=== PATIENT | male | born 1945 | race Two or more races ===

== ENCOUNTER 2022-12-22 02:35 | Emergency (ER) | payer MEDICARE ==
[~2022-12-22] VITALS: Ht 182.9 cm; Wt 99.8 kg
[2022-12-22] MEDS ORDERED: ONDANSETRON HCL/PF 4 MG/2 ML VIAL ONE (02:50)
[2022-12-22] MEDS ORDERED: LIDOCAINE VISCOUS 2% UD 15 ML UDC ONE (02:50)
[2022-12-22] MEDS ORDERED: MAG HYDROX/AL HYDROX/SIMETH 30 ML UDC ONE (02:50)
[2022-12-22] MEDS ORDERED: MAG HYDROX/AL HYDROX/SIMETH 30 ML UDC PO ONE (03:00)
[2022-12-22] MEDS ORDERED: LIDOCAINE VISCOUS 2% UD 15 ML UDC MM ONE (03:00)
[2022-12-22] MEDS ORDERED: ONDANSETRON HCL/PF 4 MG/2 ML VIAL IV ONE (03:00)
[2022-12-22 03:12] LABS: HEMOGLOBIN 14.9 g/dL (13.5-17.5); MEAN CORPUSCULAR HEMOGLOBIN 31 PG (26.0-33.0)
[2022-12-22 03:18] LABS: BASOPHILS % (AUTO) 0.4 % (0.0-2.0); EOSINOPHILS # (AUTO) 0.3 K/uL (0.0-0.7); EOSINOPHILS % (AUTO) 6.6 % (0.0-6.0); HEMATOCRIT 44 % (39-51); LYMPHOCYTES # (AUTO) 0.9 K/uL (0.8-4.8); MEAN CORPUSCULAR HGB CONC 34 g/dl (31.0-36.0); MEAN CORPUSCULAR VOLUME 92 fL (80-96); MONOCYTES # (AUTO) 0.3 K/uL (0.1-1.30); MONOCYTES % (AUTO) 6.8 % (2.0-12.0); NEUTROPHILS # (AUTO) 3.3 K/uL (1.8-8.9); NEUTROPHILS % (AUTO) 67.2 % (43.0-81.0); PLATELET COUNT (AUTO) 167 K/uL (150-450); RED BLOOD CELL COUNT(AUTO) 4.75 MIL/uL (4.5-6.0); RED CELL DISTRIBUTION WIDTH 12.7 % (11.5-15.0)
[2022-12-22 03:47] LABS: ALANINE AMINOTRANSFERASE 27 U/L (12-78); ALBUMIN 3.7 g/dL (3.4-5.0); ALKALINE PHOSPHATASE 58 U/L (46-116); ASPARTATE AMINOTRANSFERASE 15 U/L (15-37); BILIRUBIN,DIRECT 0.3 mg/dL (0.0-0.2); BILIRUBIN,TOTAL 1.4 mg/dL (0.2-1.0); CALCIUM, SERUM 9.7 mg/dL (8.5-10.1); CARBON DIOXIDE 27 mmol/L (21-32); CHLORIDE 101 mmol/L (98-107); CREATININE 1.1 mg/dL (0.6-1.3); GLUCOSE 182 mg/dL (74-106); LIPASE 70 U/L (16-77); POTASSIUM 3.7 mmol/L (3.5-5.1); SODIUM SERUM 137 mmol/L (136-145); TOTAL PROTEIN, SERUM 7.1 g/dL (6.4-8.2); UREA NITROGEN, BLOOD 11 mg/dL (7-18)
[2022-12-22] MEDS ORDERED: MORPHINE SULFATE INJ 4 MG/ML DISP.SYRIN ONE (04:23)
[2022-12-22] MEDS ORDERED: MORPHINE SULFATE INJ 2 MG/ML DISP.SYRIN IV ONE ×2 (04:30→07:00)
[2022-12-22] MEDS ORDERED: MORPHINE SULFATE INJ 2 MG/ML DISP.SYRIN ONE (06:46)
[2022-12-22 07:19] VITALS: BP 141/79; TEMP 97.7; O2SAT 98
== END 2022-12-22 07:19 | disposition home or self-care (01) ==
LOC: ER 02:38
DX: R10.13 Epigastric pain (principal); R11.0 Nausea; E11.9 Type 2 diabetes mellitus without complications; K21.9 Gastro-esophageal reflux disease without esophagitis
CPT/HCPCS: 99285; 74176; 96374; 96375; 93005; 96376; 85025; 80048; 83690; 80076; 36415; 84484 ×2; J2270 ×2; J2405